=== PATIENT | female | born 1955 | race Caucasian/White ===

== ENCOUNTER → 2016-09-27 | Outpatient (CLI) | payer MEDICARE ==
[2016-09-27 19:08] LABS: ANION GAP 8 MEQ/L (8-16); BLOOD UREA NITROGEN 15 MG/DL (7-18); CALCIUM LEVEL 9.1 MG/DL (8.8-10.2); CARBON DIOXIDE LEVEL 28 MEQ/L (21-32); CHLORIDE LEVEL 107 MEQ/L (98-107); CHOLESTEROL LEVEL 190 MG/DL (<200); CREATININE FOR GFR 0.73 MG/DL (0.55-1.02); GLOMERULAR FILTRATION RATE > 60.0 (>45); GLUCOSE, FASTING 114 MG/DL (80-110); POTASSIUM SERUM 4.1 MEQ/L (3.5-5.1); SODIUM LEVEL 143 MEQ/L (136-145); TRIGLYCERIDES LEVEL 130 MG/DL (<150)
[2016-09-29 10:59] LABS: HEP C VIRUS AB SCREEN MEDICARE 0.1 INDEX (<0.8)
[2016-09-29 11:04] LABS: CA 125 4.3 U/ML (<30.2)
== END ==
LOC: M WUC 12:05
PROVIDERS: ATTEND Physician Assistant Medical
DX: Z11.59 Encounter for screening for other viral diseases (principal); E89.0 Postprocedural hypothyroidism; Z85.43 Personal history of malignant neoplasm of ovary; Z00.00 Encounter for general adult medical examination without abnormal findings
CPT/HCPCS: 36415; 80048; 80061; 84439; 84443; 86304; G0472

== ENCOUNTER → 2017-02-21 | Outpatient (CLI) | payer MEDICARE ==
--- NOTE | 2017-02-21 13:45 | REP ---
Low-dose chest screening CT: Scanning is performed without IV contrast. Images are presented at lung windowing only. There is a 2 mm nodule in the right upper lobe peripherally on image 13. There is a 2 mm nodule in the right lower lobe on image 70. There is a ground-glass nodule measuring 7 mm inferiorly in the lingula on image 73. All of these lesions are category II lesions. The probability of malignancy is less than 1%. The recommendation is for continued annual low-dose chest CT screening. Signed by Mynor Lantigua MD 02/21/2017 01:37 P
== END ==
LOC: M RAD 11:13
PROVIDERS: ATTEND Family Medicine
DX: Z87.891 Personal history of nicotine dependence (principal)

== ENCOUNTER → 2017-03-21 | Outpatient (CLI) | payer MEDICARE ==
[~2017-03-21] VITALS: Ht 157.5 cm; Wt 59.0 kg
[~2017-03-21] MED LIST: ANTI25TA2 PO; ASPI1TAB PO; LEVO150T7 PO; MULT1TAB10 PO; NS 1,000 ML IV SCH; PROPOFOL 200 MG/20 ML VIAL As Ordered ONE; SYMB16INH INH
--- NOTE | 2017-03-21 08:33 | ROOR ---
Patient Name: Janet Adame Procedure Date: 03/21/2017 8:06 AM Date of : 1955 Age: 61 Room: [facility] Gender: Female Note Status: Finalized Procedure: Colonoscopy Indications: High risk colon cancer surveillance: Personal history of colonic polyps Providers: Moy Claudio MD Referring MD: TORI LAYNE Requesting Provider: Medicines: Monitored Anesthesia Care Complications: No immediate complications. Procedure: Pre-Anesthesia Assessment: - Prior to the procedure, a History and Physical was performed, and patient medications and allergies were reviewed. The patient is competent. The risks and benefits of the procedure and the sedation options and risks were discussed with the patient. All questions were answered and informed consent was obtained. Patient identification and proposed procedure were verified by the physician, the nurse and the anesthesiologist in the pre-procedure area in the endoscopy suite. Mental Status Examination: alert and oriented. Airway Examination: normal oropharyngeal airway and neck mobility. Respiratory Examination: clear to auscultation. CV Examination: normal. Prophylactic Antibiotics: The patient does not require prophylactic antibiotics. Prior Anticoagulants: The patient has taken aspirin, last dose was day of procedure. ASA Grade Assessment: II - A patient with mild systemic disease. After reviewing the risks and benefits, the patient was deemed in satisfactory condition to undergo the procedure. The anesthesia plan was to use monitored anesthesia care (MAC). Immediately prior to administration of medications, the patient was re-assessed for adequacy to receive sedatives. The heart rate, respiratory rate, oxygen saturations, blood pressure, adequacy of pulmonary ventilation, and response to care were monitored throughout the procedure. The physical status of the patient was re-assessed after the procedure. The Colonoscope was introduced through the anus and advanced to the cecum, identified by appendiceal orifice and ileocecal valve. The colonoscopy was performed without difficulty. The patient tolerated the procedure well. The quality of the bowel preparation was good. Findings: The perianal and digital rectal examinations were normal. Multiple small-mouthed diverticula were found in the sigmoid colon, descending colon, splenic flexure, transverse colon and ascending colon. There was no evidence of diverticular bleeding. The exam was otherwise without abnormality. No additional abnormalities were found on retroflexion. Impression: - Moderate diverticulosis in the sigmoid colon, in the descending colon, at the splenic flexure, in the transverse colon and in the ascending colon. There was no evidence of diverticular bleeding. - The examination was otherwise normal. - No specimens collected. Recommendation: - Discharge patient to home (ambulatory). - Repeat colonoscopy in 5 years for surveillance. Moy Claudio MD Moy Claudio MD 03/21/2017 8:33:46 AM This report has been signed electronically. Number of Addenda: 0 Note Initiated On: 03/21/2017 8:06 AM Estimated Blood Loss: Estimated blood loss: none.
[2017-03-21 08:53] VITALS: BP 116/61
== END | disposition home or self-care (01) ==
LOC: M OPP 07:37
PROVIDERS: ATTEND Surgery
DX: Z12.11 Encounter for screening for malignant neoplasm of colon (principal); K57.30 Diverticulosis of large intestine without perforation or abscess without bleeding; Z86.010 Personal history of colon polyps; E03.9 Hypothyroidism, unspecified; Z78.0 Asymptomatic menopausal state; Z85.43 Personal history of malignant neoplasm of ovary; F17.210 Nicotine dependence, cigarettes, uncomplicated; Z79.82 Long term (current) use of aspirin; Z79.899 Other long term (current) drug therapy; Z80.8 Family history of malignant neoplasm of other organs or systems

== ENCOUNTER → 2017-06-28 | Outpatient (CLI) | payer MEDICARE ==
[~2017-06-28] MED LIST changes: +CEFT500T3; +CYCL10TA PO; +IBUP-1022 PO; +INCR1INH; -NS 1,000 ML IV SCH; +PRED10TA2; -PROPOFOL 200 MG/20 ML VIAL As Ordered ONE
--- NOTE | 2017-06-28 16:11 | REP ---
CT of the chest without IV contrast: Comparison is the low-dose chest screening CT of 02/21/2017. There is a 2 mm lung nodule peripherally in the apex of the right upper lobe on image 17, unchanged from the comparison study. On the comparison study there was a 2 ml nodule in the right lower lobe. This is no longer present. On the comparison study there was a ground-glass nodule inferiorly in the lingula. This is no longer present. There is a new nodular density measuring 11 mm in the deep posterior sulcus of the right lower lobe. There is discoid atelectasis in the lower lobe adjacent to this. There is also new discoid atelectasis in the left lower lobe. There are no other lung nodules. There are no infiltrates or effusions. There is no mediastinal lymph node enlargement. No axillary lymph node enlargement. The study is insensitive for hilar lymph node enlargement in the absence of IV contrast. The unenhanced thoracic aorta is unremarkable. Cardiac size is normal. The visualized upper abdominal contents are unremarkable. Impression: Two of the three lung nodules identified on the comparison study are no longer present. There is a persisting 2 mm nodule in the apex of the right lung, unchanged. Additionally there is a new nodule in the deep posterior sulcus of the right lower lobe measuring 11 mm. There is atelectasis in the lower lobes bilaterally as an interval change. The 2 mm right upper lobe lung nodule is a category 2 lesion with the probability of malignancy less than 1%. Annual low-dose screening CT is recommended for follow up of this lesion. The new 11 mm nodule in the right lower lobe is a category 4A lesion. Probability of malignancy is 5-15%. Follow-up CT in 3 months is recommended. Consider PET CT. Signed by Mynor Lantigua MD 06/28/2017 04:03 P
== END ==
LOC: M RAD 14:13
PROVIDERS: ATTEND Internal Medicine Pulmonary Disease
DX: R91.1 Solitary pulmonary nodule (principal)

== ENCOUNTER 2017-07-13 12:18 | Emergency (ER) | payer MEDICARE ==
[~2017-07-13] VITALS: Ht 157.5 cm; Wt 60.0 kg
[~2017-07-13 12:18] MED LIST changes: -CEFT500T3; -CYCL10TA PO; -IBUP-1022 PO; -INCR1INH; -PRED10TA2
[2017-07-13] MEDS ORDERED: INCR1INH (12:34)
[2017-07-13] MEDS ORDERED: CEFT500T3 (12:34)
[2017-07-13] MEDS ORDERED: PRED10TA2 (12:34)
[2017-07-13] MEDS ORDERED: IBUP-1022 PO (13:10)
[2017-07-13] MEDS ORDERED: CYCL10TA PO (13:10)
[2017-07-13 13:27] VITALS: BP 113/68
== END 2017-07-13 13:30 | disposition home or self-care (01) ==
LOC: M ED 12:18
DX: M54.16 Radiculopathy, lumbar region (principal); X50.1XXA Overexertion from prolonged static or awkward postures, initial encounter; Y92.099 Unspecified place in other non-institutional residence as the place of occurrence of the external cause; F17.200 Nicotine dependence, unspecified, uncomplicated; Z79.82 Long term (current) use of aspirin; Z79.899 Other long term (current) drug therapy

== ENCOUNTER → 2017-09-14 | Outpatient (CLI) | payer MEDICARE | LOC: M WHC 13:36 | DX: Z12.31 Encounter for screening mammogram for malignant neoplasm of breast (principal) | CPT/HCPCS: 77067 ==

== ENCOUNTER → 2017-10-19 | Outpatient (CLI) | payer MEDICARE | LOC: M RAD 13:01 | DX: R91.1 Solitary pulmonary nodule (principal) | CPT/HCPCS: 71250 ==

== ENCOUNTER → 2017-10-31 | Outpatient (REF) | payer MEDICARE ==
[2017-10-31 17:39] LABS: PLATELET COUNT, AUTOMATED 256 10^3/uL (150-450)
[2017-10-31 17:55] LABS: INR 1.04; PROTHROMBIN TIME 13.7 SECONDS (12.4-14.5)
[2017-10-31 17:56] LABS: PARTIAL THROMBOPLASTIN TIME 31.5 SECONDS (26.8-37.9)
== END ==
LOC: M LAB REF 17:11
DX: R91.8 Other nonspecific abnormal finding of lung field (principal); Z79.899 Other long term (current) drug therapy
CPT/HCPCS: 85049

== ENCOUNTER → 2018-01-27 | Outpatient (CLI) | payer MEDICARE ==
[2018-01-27 17:33] LABS: ESTIMATED AVERAGE GLUCOSE 105 MG/DL (60-110); HEMOGLOBIN A1c 5.3 %
[2018-01-27 17:35] LABS: ALBUMIN 3.7 GM/DL (3.2-5.2); ALBUMIN/GLOBULIN RATIO 1.32 (1.00-1.93); ALKALINE PHOSPHATASE 100 U/L (45-117); ALT/SGPT 19 U/L (12-78); ANION GAP 6 MEQ/L (8-16); AST/SGOT 15 U/L (7-37); BILIRUBIN,TOTAL 0.4 MG/DL (0.2-1.0); BLOOD UREA NITROGEN 17 MG/DL (7-18); CALCIUM LEVEL 8.9 MG/DL (8.8-10.2); CARBON DIOXIDE LEVEL 28 MEQ/L (21-32); CHLORIDE LEVEL 108 MEQ/L (98-107); CHOLESTEROL LEVEL 160 MG/DL (<200); CHOLESTEROL RISK RATIO 3.404 (<5); CREATININE FOR GFR 0.61 MG/DL (0.55-1.30); FREE T4 1.25 NG/DL (0.76-1.46); GLOMERULAR FILTRATION RATE > 60.0 (>45); GLUCOSE, FASTING 96 MG/DL (70-100); HDL CHOLESTEROL 47 MG/DL (>40); LDL CHOLESTEROL 96.2 MG/DL (<100); NON-HDL-C 113 MG/DL; POTASSIUM SERUM 4.5 MEQ/L (3.5-5.1); SODIUM LEVEL 142 MEQ/L (136-145); THYROID STIMULATING HORMONE 0.088 uIU/ML (0.358-3.740); TOTAL PROTEIN 6.5 GM/DL (6.4-8.2); TRIGLYCERIDES LEVEL 84 MG/DL (<150)
== END ==
LOC: M WUC 09:07
DX: E89.0 Postprocedural hypothyroidism (principal); R73.01 Impaired fasting glucose; Z13.220 Encounter for screening for lipoid disorders
CPT/HCPCS: 84443

== ENCOUNTER → 2018-02-01 | Outpatient (CLI) | payer MEDICARE ==
[~2018-02-01] MED LIST changes: -ANTI25TA2 PO; -ASPI1TAB PO; +GASTROGRAFIN SOLUTION 30ML (Q9963) As Ordered; +ISOVUE-370 76% 100ML VIAL (Q9967) As Ordered; -LEVO150T7 PO; -MULT1TAB10 PO; -SYMB16INH INH
== END ==
LOC: M RAD 13:32
DX: R91.8 Other nonspecific abnormal finding of lung field (principal)

== ENCOUNTER → 2018-02-01 | Outpatient (CLI) | payer MEDICARE | LOC: M RAD 13:24 | DX: R10.33 Periumbilical pain (principal); R19.06 Epigastric swelling, mass or lump; K57.30 Diverticulosis of large intestine without perforation or abscess without bleeding; R91.8 Other nonspecific abnormal finding of lung field | CPT/HCPCS: Q9963 ==

== ENCOUNTER → 2018-04-14 | Outpatient (CLI) | payer MEDICARE ==
[2018-04-14 17:54] LABS: FREE T4 1.01 NG/DL (0.76-1.46)
[2018-04-14 17:54] LABS: THYROID STIMULATING HORMONE 0.611 uIU/ML (0.358-3.740)
== END ==
LOC: M WUC 10:55
DX: E03.9 Hypothyroidism, unspecified (principal)
CPT/HCPCS: 84443

== ENCOUNTER → 2018-07-31 | Outpatient (CLI) | payer MEDICARE | LOC: M RAD 10:32 | DX: R91.8 Other nonspecific abnormal finding of lung field (principal) | CPT/HCPCS: 71250 ==

== ENCOUNTER → 2018-09-17 | Outpatient (CLI) | payer MEDICARE ==
[~2018-09-17] MED LIST changes: +ANTI25TA2 PO; +ASPI1TAB PO; +CEFT500T3; +CYCL10TA PO; -GASTROGRAFIN SOLUTION 30ML (Q9963) As Ordered; +IBUP-1022 PO; +INCR1INH; -ISOVUE-370 76% 100ML VIAL (Q9967) As Ordered; +LEVO150T7 PO; +MULT1TAB10 PO; +PRED10TA2; +SYMB16INH INH
--- NOTE | 2018-09-17 16:44 | REPMRS ---
Patient History The patient states she had a clinical breast exam in 09/21 No known family history of cancer. Digital Woman Screen Mammo: September 17, 2018 - Exam #: [id number] Bilateral CC and MLO view(s) were taken. Technologist: Irish Mueller, Technologist Prior study comparison: September 14, 2017, digital woman screen mammo performed at [facility] to [facility]. July 27, 2015, digital woman screen mammo performed at [facility] to [facility]. December 29, 2010, bilateral screening mammogram, [facility]. FINDINGS: There are scattered fibroglandular densities. There has been no change in the appearance of the mammogram from the prior studies. There is a mild amount of scattered fibroglandular density which is fairly symmetric. There is no interval development of dominant mass, architectural distortion, or clustered microcalcification suggestive of malignancy. 3-D tomosynthesis shows no additional findings. Assessment: BI-RADS/ACR category 1 mammogram. Negative. Recommendation Routine screening mammogram of both breasts in 1 year (for women over age 40). This patient's Lifetime Breast Cancer RIsk is estimated at 8.5 %. This mammogram was interpreted with the aid of an FDA-approved computer-aided dectection system. Electronically Signed By: Mal De Leon MD 09/17/18 [id number]
== END ==
LOC: M WHC 13:45
PROVIDERS: ATTEND Nurse Practitioner Women's Health
DX: Z12.31 Encounter for screening mammogram for malignant neoplasm of breast (principal)

== ENCOUNTER → 2019-01-29 | Outpatient (CLI) | payer MEDICARE ==
[~2019-01-29] MED LIST changes: -ASPI1TAB PO; +ASPI81TA26 PO
--- NOTE | 2019-01-29 11:20 | REP ---
CT chest without contrast: History: Other nonspecific abnormal finding of the lung field. Comparison is made with prior CT studies, the most recent of which is from July 31, 2018, and the most remote of which is from February 21, 2017. CT findings: There is mild bilateral lower lobe pleuroparenchymal fibrosis again seen right a little more prominent than left unchanged from multiple prior studies. No significant pulmonary nodule is seen on either side. There is no evidence of pleural or pericardial effusion. No hilar or mediastinal mass or adenopathy is observed. Vascular calcification is again noted. The AP dimension of the ascending aorta is again noted be mildly prominent 3.8 cm. This is unchanged. No adrenal lesion is seen. There is a small cyst in the upper pole right kidney measuring 1.3 cm in diameter. This it is felt to be unchanged. The visualized upper abdominal structures are otherwise unremarkable. No acute bony abnormality is appreciated. Impression: Bibasilar linear fibrosis radiographically stable. No significant pulmonary nodule. Electronically Signed by Phil De Leon MD 01/29/2019 12:36 P
== END ==
LOC: M RAD 09:40
PROVIDERS: ATTEND Internal Medicine Pulmonary Disease
DX: R91.8 Other nonspecific abnormal finding of lung field (principal)

== ENCOUNTER → 2019-05-04 | Outpatient (CLI) | payer MEDICARE ==
[2019-05-04 11:54] LABS: CHOLESTEROL RISK RATIO 3.355 (<5); FREE T4 1.34 NG/DL (0.76-1.46); THYROID STIMULATING HORMONE 0.339 uIU/ML (0.358-3.740)
== END ==
LOC: M WUC 08:01
PROVIDERS: ATTEND Physician Assistant Medical
DX: Z13.220 Encounter for screening for lipoid disorders (principal); E89.0 Postprocedural hypothyroidism

== ENCOUNTER → 2019-09-18 | Outpatient (CLI) | payer MEDICARE ==
--- NOTE | 2019-09-18 10:49 | REPMRS ---
Patient History The patient states she had a clinical breast exam in September 2019.No known family history of cancer. Digital Woman Screen Mammo: September 18, 2019 - Exam #: [id number] Bilateral CC and MLO view(s) were taken. Technologist: Jackie Ko, Technologist Prior study comparison: September 17, 2018, bilateral digital woman screen mammo performed at [facility]. September 14, 2017, digital woman screen mammo performed at [facility]. July 27, 2015, digital woman screen mammo performed at [facility]. FINDINGS: There are scattered fibroglandular densities. There is a small nodular density medially in the left breast which is felt to be unchanged from the 2014 prior study. There is a moderate amount of residual fibroglandular tissue which is fairly symmetric. There is no interval development of dominant mass, architectural distortion, or grouped microcalcification typical of malignancy. There has been no change in the appearance of the mammogram from the prior studies. 3-D tomosynthesis shows no additional findings. Assessment: BI-RADS/ACR category 2 mammogram. Benign Findings. Recommendation Routine screening mammogram of both breasts in 1 year (for women over age 40). This patient's Lifetime Breast Cancer RIsk is estimated at 8.1 %. This mammogram was interpreted with the aid of an FDA-approved computer-aided dectection system. Electronically Signed By: Mal De Leon MD 09/18/19 [id number]
== END ==
LOC: EDBD → M WHC 09:27
PROVIDERS: ATTEND Nurse Practitioner Women's Health
DX: Z12.31 Encounter for screening mammogram for malignant neoplasm of breast (principal)
CPT/HCPCS: 77063; 77067; G0101

== ENCOUNTER → 2019-09-30 | Outpatient (CLI) | payer MEDICARE ==
[2019-09-30 13:15] LABS: BASO # 0.1 10^3/uL (0.0-0.2); BASO % 0.5 % (0.0-1.0); EOS # 0.2 10^3/uL (0.0-0.5); EOS % 1.6 % (0.0-3.0); HEMATOCRIT 42.7 % (36.0-47.0); HEMOGLOBIN 14.1 g/dl (12.0-15.5); LYMPH # 1.6 10^3/uL (1.5-5.0); LYMPH % 15.5 % (24.0-44.0); MEAN CORPUSCULAR HEMOGLOBIN 30.6 pg (27.0-33.0); MEAN CORPUSCULAR VOLUME 92.6 fl (80.0-96.0); MONO # 0.6 10^3/uL (0.0-0.8); MONO % 6.2 % (0.0-5.0); NEUTROPHILS # 7.8 10^3/uL (1.5-8.5); PLATELET COUNT, AUTOMATED 230 10^3/uL (150-450); RED BLOOD COUNT 4.61 10^6/uL (4.00-5.40); WHITE BLOOD COUNT 10.2 10^3/uL (4.0-10.0)
[2019-09-30 13:28] LABS: ALT/SGPT 16 U/L (12-78); BILIRUBIN,TOTAL 0.7 MG/DL (0.2-1.0); BLOOD UREA NITROGEN 14 MG/DL (7-18); CALCIUM LEVEL 9.8 MG/DL (8.8-10.2); CARBON DIOXIDE LEVEL 26 MEQ/L (21-32); CHLORIDE LEVEL 105 MEQ/L (98-107); CREATININE FOR GFR 0.76 MG/DL (0.55-1.30); GLOMERULAR FILTRATION RATE > 60.0 (>45); GLUCOSE, FASTING 99 MG/DL (70-100); POTASSIUM SERUM 4.3 MEQ/L (3.5-5.1); SODIUM LEVEL 139 MEQ/L (136-145); TOTAL PROTEIN 6.8 GM/DL (6.4-8.2)
== END ==
LOC: M WUC 10:10
PROVIDERS: ATTEND Nurse Practitioner Family
DX: A08.39 Other viral enteritis (principal)

== ENCOUNTER → 2020-04-01 | Outpatient (CLI) | payer MEDICARE, MEDICAID ==
[~2020-04-01] MED LIST changes: +CYCL-707 PO; -CYCL10TA PO
--- NOTE | 2020-05-24 07:17 | REP ---
CT OF THE CHEST WITHOUT INTRAVENOUS (IV) CONTRAST COMPARISONS: Prior studies the most recent of which was 01/29/2019 and the most remote of which was 06/28/2017. FINDINGS: The lung nodules and ground-glass densities identified on 06/28/2017, were no longer present on 01/29/2019, and are no longer present today. There are no new lung nodules or masses. There is chronic pleuroparenchymal scarring in the deep posterior sulcus of the right lung, not significantly changed. There is curvilinear parenchymal scarring in the left lower lobe, not significantly changed. There are no infiltrates. There are no pleural effusions. There is no mediastinal or axillary lymph node enlargement. This study is insensitive for hilar lymph node enlargement in the absence of IV contrast. Occasional vascular atheroma in the aortic arch is again identified, unchanged. Cardiac size is normal. There is no pericardial effusion. In the upper abdomen, there is no adrenal mass. The small cyst in the upper pole of the right kidney is unchanged. IMPRESSION: There are no lung nodules, masses, infiltrates, or pleural effusions. No adenopathy. There is chronic scarring in the lung bases bilaterally. MTDD
== END ==
LOC: M RAD 16:10
PROVIDERS: ATTEND Internal Medicine Pulmonary Disease
DX: R91.8 Other nonspecific abnormal finding of lung field (principal); N28.1 Cyst of kidney, acquired

== ENCOUNTER → 2020-05-07 | Outpatient (CLI) | payer MEDICARE ==
[2020-05-07 19:19] LABS: BASO # 0.1 10^3/uL (0.0-0.2); BASO % 0.9 % (0.0-1.0); EOS # 0.1 10^3/uL (0.0-0.5); EOS % 1.9 % (0.0-3.0); HEMATOCRIT 40.6 % (36.0-47.0); HEMOGLOBIN 13.4 g/dl (12.0-15.5); LYMPH # 1.7 10^3/uL (1.5-5.0); LYMPH % 24.9 % (24.0-44.0); MEAN CORPUSCULAR HEMOGLOBIN 30.6 pg (27.0-33.0); MEAN CORPUSCULAR VOLUME 92.7 fl (80.0-96.0); MONO # 0.4 10^3/uL (0.0-0.8); MONO % 6.1 % (0.0-5.0); NEUTROPHILS # 4.4 10^3/uL (1.5-8.5); NEUTROPHILS % 66.1 % (36.0-66.0); PLATELET COUNT, AUTOMATED 255 10^3/uL (150-450); RED BLOOD COUNT 4.38 10^6/uL (4.00-5.40); WHITE BLOOD COUNT 6.7 10^3/uL (4.0-10.0)
[2020-05-07 19:43] LABS: ALT/SGPT 16 U/L (12-78); BILIRUBIN,DIRECT 0.1 MG/DL (0.0-0.2); BILIRUBIN,TOTAL 0.5 MG/DL (0.2-1.0); BLOOD UREA NITROGEN 15 MG/DL (7-18); CALCIUM LEVEL 9.1 MG/DL (8.8-10.2); CARBON DIOXIDE LEVEL 27 MEQ/L (21-32); CHLORIDE LEVEL 107 MEQ/L (98-107); CREATININE FOR GFR 0.71 MG/DL (0.55-1.30); FREE T4 1.15 NG/DL (0.76-1.46); GLOMERULAR FILTRATION RATE > 60.0 (>45); GLUCOSE, FASTING 90 MG/DL (70-100); POTASSIUM SERUM 4.6 MEQ/L (3.5-5.1); SODIUM LEVEL 140 MEQ/L (136-145); TOTAL PROTEIN 6.6 GM/DL (6.4-8.2)
== END ==
LOC: M WUC 11:57
PROVIDERS: ATTEND Nurse Practitioner Family
DX: Z00.00 Encounter for general adult medical examination without abnormal findings (principal); Z79.899 Other long term (current) drug therapy

== ENCOUNTER → 2020-10-01 | Outpatient (CLI) | payer MEDICARE ==
--- NOTE | 2020-10-01 15:08 | REPMRS ---
Patient History The patient states she has not had a clinical breast exam in over a year. No known family history of cancer. Digital Woman Screen Mammo: October 01, 2020 - Exam #: [id number] Bilateral CC and MLO view(s) were taken. Technologist: Bibi Diaz, Technologist Prior study comparison: September 18, 2019, bilateral digital woman screen mammo performed at [facility]. September 17, 2018, bilateral digital woman screen mammo performed at [facility]. September 14, 2017, digital woman screen mammo performed at [facility]. FINDINGS: There are scattered fibroglandular densities. The Volpara volumetric breast density category is:B. There has been no change in the appearance of the mammogram from the prior studies. There is a mild amount of scattered fibroglandular density which is fairly symmetric. There is no interval development of dominant mass, architectural distortion, or grouped microcalcification suggestive of malignancy. 3-D tomosynthesis shows no additional findings. Assessment: BI-RADS/ACR category 1 mammogram. Negative Mammogram. Recommendation Routine screening mammogram of both breasts in 1 year (for women over age 40). This patient's [facility] Lifetime Breast Cancer Risk is estimated at 7.8 %. This mammogram was interpreted with the aid of an FDA-approved computer-aided dectection system. Electronically Signed By: Mal De Leon MD 10/01/20 [id number]
== END ==
LOC: M WHC 14:03
PROVIDERS: ATTEND Nurse Practitioner Women's Health
DX: Z12.31 Encounter for screening mammogram for malignant neoplasm of breast (principal)

== ENCOUNTER → 2021-04-29 | Outpatient (CLI) | payer MEDICARE ==
--- NOTE | 2021-04-29 09:50 | REP ---
INDICATION: NICOTINE DEPEND. COMPARISON: Multiple the latest 04/01/2020 TECHNIQUE: Axial noncontrast images from the thoracic inlet to the upper abdomen using low-dose lung screening technique (LDCT). As per the protocol only lung window images were sent to the read station for interpretation FINDINGS: There are bibasilar curvilinear densities essentially unchanged when the technical differences between the examinations are taken into consideration. There are 2 focal areas of thickening of the right major fissure status quo. There is stable biapical pleuroparenchymal scarring. There is cylindrical bronchiectasis status quo. No new abnormal nodules, masses, or opacities have developed. Grossly, the mediastinum and pulmonary wyatt are unchanged. Grossly, the imaged upper abdomen and imaged osseous structures are unchanged. IMPRESSION: Stable lung rads category 1 S low-dose screening CT examination of the lungs. <Electronically signed by Micheal Ibarra > 04/29/21 [id number]
== END ==
LOC: M RAD 08:49
PROVIDERS: ATTEND Internal Medicine Pulmonary Disease
DX: Z12.2 Encounter for screening for malignant neoplasm of respiratory organs (principal); F17.218 Nicotine dependence, cigarettes, with other nicotine-induced disorders; R91.8 Other nonspecific abnormal finding of lung field; E89.0 Postprocedural hypothyroidism

== ENCOUNTER → 2021-04-29 | Outpatient (CLI) | payer MEDICARE, MEDICAID ==
[2021-04-29 10:29] LABS: ALBUMIN 3.7 GM/DL (3.2-5.2); ALT/SGPT 20 U/L (12-78); BILIRUBIN,TOTAL 0.3 MG/DL (0.2-1.0); BLOOD UREA NITROGEN 19 MG/DL (7-18); CARBON DIOXIDE LEVEL 29 MEQ/L (21-32); CHLORIDE LEVEL 110 MEQ/L (98-107); CHOLESTEROL LEVEL 172 MG/DL (<200); CHOLESTEROL RISK RATIO 3.017 (<5); CREATININE FOR GFR 0.65 MG/DL (0.55-1.30); FREE T4 1.28 NG/DL (0.76-1.46); GLOMERULAR FILTRATION RATE > 60.0 (>45); GLUCOSE, FASTING 95 MG/DL (70-100); HDL CHOLESTEROL 57 MG/DL (>40); LDL CHOLESTEROL 96 MG/DL (<100); NON-HDL-C 115 MG/DL; POTASSIUM SERUM 4.6 MEQ/L (3.5-5.1); SODIUM LEVEL 141 MEQ/L (136-145); THYROID STIMULATING HORMONE 0.181 uIU/ML (0.358-3.740); TOTAL PROTEIN 6.5 GM/DL (6.4-8.2); TRIGLYCERIDES LEVEL 97 MG/DL (<150)
== END ==
LOC: M WUC 08:11
PROVIDERS: ATTEND Nurse Practitioner Family
DX: E89.0 Postprocedural hypothyroidism (principal)

== ENCOUNTER → 2021-07-15 | Outpatient (CLI) | payer MEDICARE ==
[2021-07-15 16:48] LABS: FREE T4 1.03 NG/DL (0.76-1.46); THYROID STIMULATING HORMONE 0.416 uIU/ML (0.358-3.740)
== END ==
LOC: M WUC 11:40
PROVIDERS: ATTEND Nurse Practitioner Family
DX: E89.0 Postprocedural hypothyroidism (principal)

== ENCOUNTER → 2022-05-15 | Outpatient (CLI) | payer MEDICARE | LOC: M WHC 12:31 | PROVIDERS: ATTEND Nurse Practitioner Family | DX: Z12.31 Encounter for screening mammogram for malignant neoplasm of breast (principal) ==

== ENCOUNTER → 2022-05-26 | Outpatient (CLI) | payer MEDICARE | LOC: M RAD 09:37 | PROVIDERS: ATTEND Internal Medicine Pulmonary Disease | DX: F17.218 Nicotine dependence, cigarettes, with other nicotine-induced disorders (principal) ==

== ENCOUNTER → 2022-09-29 | Outpatient (REF) | payer MEDICARE | LOC: M WUC 12:37 | PROVIDERS: ATTEND Physician Assistant | DX: L02.214 Cutaneous abscess of groin (principal) ==

== ENCOUNTER → 2022-11-08 | Outpatient (CLI) | payer MEDICARE ==
[2022-11-08 12:56] LABS: ALKALINE PHOSPHATASE 89 U/L (46-116); ALT/SGPT 16 U/L (7.0-40); AST/SGOT 20 U/L (<34); BILIRUBIN,TOTAL 0.7 MG/DL (0.3-1.2); BLOOD UREA NITROGEN 12 MG/DL (9-23); CALCIUM LEVEL 9.5 MG/DL (8.3-10.6); CARBON DIOXIDE LEVEL 29 MMOL/L (20-31); CHLORIDE LEVEL 103 MMOL/L (98-107); CHOLESTEROL LEVEL 198 MG/DL (<200); CHOLESTEROL RISK RATIO 3.15 (<5); CREATININE FOR GFR 0.68 MG/DL (0.55-1.30); FREE T4 0.97 NG/DL (0.89-1.76); GLOMERULAR FILTRATION RATE > 60.0 (>45); GLUCOSE, FASTING 96 MG/DL (74-106); HDL CHOLESTEROL 62.7 MG/DL (>40); LDL CHOLESTEROL 116.1 MG/DL (<100); NON-HDL-C 135.3 MG/DL; POTASSIUM SERUM 4.5 MMOL/L (3.5-5.1); SODIUM LEVEL 137 MMOL/L (136-145); TOTAL PROTEIN 6.5 G/DL (5.7-8.2); TRIGLYCERIDES LEVEL 96 MG/DL (<150)
== END ==
LOC: M WUC 09:04
PROVIDERS: ATTEND Nurse Practitioner Family
DX: E89.0 Postprocedural hypothyroidism (principal)

== ENCOUNTER → 2023-06-15 | Outpatient (CLI) | payer MEDICARE, MEDICAID | LOC: M RAD 08:34 → EDBD 09:00 | PROVIDERS: ATTEND Internal Medicine Pulmonary Disease | DX: Z12.2 Encounter for screening for malignant neoplasm of respiratory organs (principal); F17.218 Nicotine dependence, cigarettes, with other nicotine-induced disorders; J47.9 Bronchiectasis, uncomplicated; I25.10 Atherosclerotic heart disease of native coronary artery without angina pectoris; I70.0 Atherosclerosis of aorta; R91.8 Other nonspecific abnormal finding of lung field ==

== ENCOUNTER → 2023-11-13 | Outpatient (CLI) | payer MEDICARE, MEDICAID ==
[2023-11-13 11:38] LABS: BASO # 0.1 10^3/uL (0.0-0.2); EOS # 0.1 10^3/uL (0.0-0.5); EOS % 2.1 % (0.0-3.0); HEMATOCRIT 40.8 % (36.0-47.0); HEMOGLOBIN 13.6 g/dl (12.0-15.5); LYMPH # 1.9 10^3/uL (1.5-5.0); LYMPH % 28.3 % (24.0-44.0); MEAN CORPUSCULAR HEMOGLOBIN 32.9 pg (27.0-33.0); MEAN CORPUSCULAR HGB CONC 33.3 g/dl (32.0-36.5); MEAN CORPUSCULAR VOLUME 98.8 fl (80.0-96.0); MONO # 0.4 10^3/uL (0.0-0.8); MONO % 6.4 % (2.0-8.0); NEUTROPHILS # 4.2 10^3/uL (1.5-8.5); NEUTROPHILS % 61.9 % (36.0-66.0); PLATELET COUNT, AUTOMATED 244 10^3/uL (150-450); RED BLOOD COUNT 4.13 10^6/uL (4.00-5.40); WHITE BLOOD COUNT 6.7 10^3/uL (4.0-10.0)
[2023-11-13 11:44] LABS: ALBUMIN 4.1 G/DL (3.2-5.2); ALKALINE PHOSPHATASE 76 U/L (46-116); ALT/SGPT 19 U/L (7.0-40); AST/SGOT 21 U/L (<34); BILIRUBIN,TOTAL 0.4 MG/DL (0.3-1.2); BLOOD UREA NITROGEN 18 MG/DL (9-23); CARBON DIOXIDE LEVEL 28 MMOL/L (20-31); CHLORIDE LEVEL 105 MMOL/L (98-107); CHOLESTEROL LEVEL 205 MG/DL (<200); CHOLESTEROL RISK RATIO 3.14 (<5); GLOMERULAR FILTRATION RATE > 60.0 (>45); GLUCOSE, FASTING 93 MG/DL (74-106); HDL CHOLESTEROL 65.2 MG/DL (>40); LDL CHOLESTEROL 117.2 MG/DL (<100); NON-HDL-C 139.8 MG/DL; POTASSIUM SERUM 4.5 MMOL/L (3.5-5.1); SODIUM LEVEL 136 MMOL/L (136-145); TOTAL PROTEIN 6.4 G/DL (5.7-8.2); TRIGLYCERIDES LEVEL 113 MG/DL (<150)
[2023-11-13 11:45] LABS: FREE T4 1.13 NG/DL (0.89-1.76); THYROID STIMULATING HORMONE 6.642 uIU/ML (0.55-4.78)
== END ==
LOC: M WUC 09:03
PROVIDERS: ATTEND Nurse Practitioner Family
DX: Z00.00 Encounter for general adult medical examination without abnormal findings (principal); E89.0 Postprocedural hypothyroidism

== ENCOUNTER → 2023-11-19 | Outpatient (CLI) | payer MEDICARE, MEDICAID | LOC: EDBD → M PLAIMG 13:23 | PROVIDERS: ATTEND Internal Medicine Pulmonary Disease | DX: R91.1 Solitary pulmonary nodule (principal) ==

== ENCOUNTER → 2024-01-24 | Outpatient (REF) | payer MEDICARE, MEDICAID ==
[2024-01-24 12:21] LABS: FREE T4 1.06 NG/DL (0.89-1.76); THYROID STIMULATING HORMONE 4.625 uIU/ML (0.55-4.78)
== END ==
LOC: M LABWUC 10:05
PROVIDERS: ATTEND Nurse Practitioner Family
DX: E89.0 Postprocedural hypothyroidism (principal)

== ENCOUNTER → 2024-11-18 | Outpatient (CLI) | payer MEDICARE, MEDICAID ==
[2024-11-18 14:17] LABS: FREE T4 1.05 NG/DL (0.89-1.76)
[2024-11-18 14:18] LABS: ALBUMIN 4.1 G/DL (3.2-5.2); ALKALINE PHOSPHATASE 79 U/L (35-104); ALT/SGPT 12 U/L (7.0-40); AST/SGOT 13 U/L (<34); BILIRUBIN,TOTAL 0.5 MG/DL (0.3-1.2); BLOOD UREA NITROGEN 17 MG/DL (9-23); CALCIUM LEVEL 9.5 MG/DL (8.3-10.6); CARBON DIOXIDE LEVEL 27 MMOL/L (20-31); CHLORIDE LEVEL 104 MMOL/L (98-107); CHOLESTEROL LEVEL 179 MG/DL (<200); CHOLESTEROL RISK RATIO 3.08 (<5); CREATININE FOR GFR 0.74 MG/DL (0.55-1.30); GLOMERULAR FILTRATION RATE > 60.0 (>45); GLUCOSE, FASTING 88 MG/DL (74-106); LDL CHOLESTEROL 98.8 MG/DL (<100); POTASSIUM SERUM 4.9 MMOL/L (3.5-5.1); SODIUM LEVEL 140 MMOL/L (136-145); THYROID STIMULATING HORMONE 6.544 uIU/ML (0.55-4.78); TOTAL PROTEIN 6.7 G/DL (5.7-8.2); TRIGLYCERIDES LEVEL 111 MG/DL (<150)
== END ==
LOC: M WUC 09:07
PROVIDERS: ATTEND Nurse Practitioner Family
DX: E89.0 Postprocedural hypothyroidism (principal)

== ENCOUNTER → 2024-12-18 | Outpatient (CLI) | payer MEDICARE, MEDICAID | LOC: M RAD 13:22 | PROVIDERS: ATTEND Internal Medicine Pulmonary Disease | DX: Z12.2 Encounter for screening for malignant neoplasm of respiratory organs (principal); F17.218 Nicotine dependence, cigarettes, with other nicotine-induced disorders ==

== ENCOUNTER → 2025-04-23 | Outpatient (CLI) | payer MEDICARE, MEDICAID ==
[~2025-04-23] MED LIST changes: -IBUP-1022 PO; +IBUP600T42 PO
[2025-04-23 18:08] LABS: ALT/SGPT 15 U/L (7.0-40); AST/SGOT 19 U/L (<34); CALCIUM LEVEL 9.4 MG/DL (8.3-10.6); CARBON DIOXIDE LEVEL 28 MMOL/L (20-31); CHLORIDE LEVEL 105 MMOL/L (98-107); CREATININE FOR GFR 0.70 MG/DL (0.55-1.30); GLOMERULAR FILTRATION RATE > 90.0 (>45); POTASSIUM SERUM 4.3 MMOL/L (3.5-5.1); SODIUM LEVEL 142 MMOL/L (136-145)
[2025-04-23 18:14] LABS: BASO # 0.1 10^3/uL (0.0-0.2); BASO % 0.6 % (0.0-1.0); EOS # 0.1 10^3/uL (0.0-0.5); EOS % 1.0 % (0.0-3.0); LYMPH # 1.8 10^3/uL (1.5-5.0); LYMPH % 18.4 % (24.0-44.0); MONO # 0.7 10^3/uL (0.0-0.8); MONO % 7.5 % (2.0-8.0); NEUTROPHILS # 7.1 10^3/uL (1.5-8.5); NEUTROPHILS % 72.2 % (36.0-66.0); PLATELET COUNT, AUTOMATED 287 10^3/uL (150-450)
== END ==
LOC: M WUC 15:22
PROVIDERS: ATTEND Registered Nurse
DX: R10.30 Lower abdominal pain, unspecified (principal)

== ENCOUNTER → 2025-05-06 | Outpatient (CLI) | payer MEDICARE, MEDICAID ==
[2025-05-06 09:15] LABS: CREATININE FOR GFR 0.71 MG/DL (0.55-1.30); GLOMERULAR FILTRATION RATE > 90.0 (>45)
== END ==
LOC: M LAB 08:09
PROVIDERS: ATTEND Nurse Practitioner Family
DX: Z01.812 Encounter for preprocedural laboratory examination (principal)

== ENCOUNTER → 2025-05-08 | Outpatient (CLI) | payer MEDICARE, MEDICAID ==
[~2025-05-08] MED LIST changes: +ISOVUE-370 76% 100 ML VIAL As Ordered ONE
== END ==
LOC: M RAD 15:40
PROVIDERS: ATTEND Nurse Practitioner Family
DX: R10.30 Lower abdominal pain, unspecified (principal)
CPT/HCPCS: 74177; Q9967